=== PATIENT | female | born 1995 | race Caucasian/White ===

== ENCOUNTER → 2017-09-16 | Outpatient (CLI) | payer BC | END | disposition home or self-care (01) | LOC: LABWHC1 13:43 | PROVIDERS: ATTEND Obstetrics & Gynecology | DX: Z36.9 Encounter for antenatal screening, unspecified (principal) | CPT/HCPCS: 36415; 82950; 86850 ==

== ENCOUNTER 2017-11-02 06:27 | Inpatient (IN) | payer BC ==
[2017-11-02] MEDS ORDERED: LACTATED RINGERS 1,000 ML IV SCH (07:00)
[2017-11-02 07:07] LABS: Basophils % (A) 0 %; Eosinophils # (A) 0.1 k/uL (0-0.7); Eosinophils % (A) 1 %; HCT 35.7 % (34.0-46.0); HGB 11.8 gm/dL (11.4-16.0); Lymphocytes # (A) 1.7 k/uL (1.0-4.8); Lymphocytes % (A) 22 %; MCH 29.3 pg (25.0-35.0); MCHC 33.1 g/dL (31.0-37.0); MCV 88.8 fL (80.0-100.0); Mean Platelet Volume 7.9; Monocytes # (A) 0.4 k/uL (0-1.0); Monocytes % (A) 5 %; Neutrophils # (A) 5.4 k/uL (1.3-7.7); Neutrophils % (A) 70 %; Platelet Count 229 k/uL (150-450); RBC 4.03 m/uL (3.80-5.40); RDW 13.2 % (11.5-15.5); WBC 7.8 k/uL (3.8-10.6)
[2017-11-02] MEDS ORDERED: BETAMET ACET-BETAMETH SOD PHOS 6 MG/ML VIAL IM SCH (07:30)
[2017-11-02 07:42] VITALS: BMI 32.5
[2017-11-02] MEDS: PRENATAL VIT-IRON-FOLIC ACID 1 EACH CAP PO SCH (09:58)
--- NOTE | 2017-11-02 11:50 | P.HPOB ---
History of Present Illness H&P Date: 11/02/17 Chief Complaint: IUP @ 34 5/7 weeks, complete previa, VB This is a pleasant 22yo at 34 5/7 weeks EDC 6/ She has been receiving care with Dr. Bacon. she noted an epidsode of VB this am upon waking, and she presented to labor and delivery on arrival scant bleeding noted on her pad. she denies ctx, good fm. On blood work she had a blood type of O-, rubella immune, RPR nonreactive, hepatitis B surface antigen negative, HIV negative normal ultrasound at 20 weeks was noted she Was administered on 425 ultrasound was repeated on 09/15/2017 secondary to complete previa which remained. She did receive program on 09/23 Review of Systems Constitutional: Denies chills, Denies fatigue, Denies fever Cardiovascular: Reports edema Respiratory: Denies dyspnea Gastrointestinal: Denies constipation, Denies diarrhea Genitourinary: Reports (complete previa with VB) Past Medical History Past Medical History: No Reported History History of Any Multi-Drug Resistant Organisms: None Reported Past Surgical History: Tonsillectomy Past Anesthesia/Blood Transfusion Reactions: No Reported Reaction Past Psychological History: No Psychological Hx Reported Smoking Status: Never smoker Past Alcohol Use History: None Reported Past Drug Use History: None Reported - Past Family History Mother Family Medical History: No Reported History Medications and Allergies Home Medications Medication Instructions Recorded Confirmed Type Pnv,Calcium 72/Iron/Folic Acid 1 tab PO DAILY 11/02/17 11/02/17 History [ Plus Tablet] Allergies Allergy/AdvReac Type Severity Reaction Status Date / Time No Known Allergies Allergy Verified 11/02/17 06:34 Exam Osteopathic Statement: *. No significant issues noted on an osteopathic structural exam other than those noted in the History and Physical/Consult. - Vital Signs Vital signs: Vital Signs Temp Pulse Resp BP 11/02/17 06:35 97.6 F 73 16 121/73 Intake and Output 11/01/17 11/02/17 11/02/17 22:59 06:59 14:59 Other: Weight 86.183 kg - OBG Physical Exam Abdomen: gravid Cervix: defer given complete previa Uterus: enlarged Results Result Diagrams: 11/02/17 06:55 Assessment and Plan (1) Complete placenta previa nos or without hemorrhage, third trimester Current Visit: Yes Status: Acute Code(s): O44.03 - COMPLETE PLACENTA PREVIA NOS OR WITHOUT HEMOR, THIRD TRI SNOMED Code(s): 5220282 (2) Vaginal bleeding Current Visit: Yes Status: Acute Code(s): N93.9 - ABNORMAL UTERINE AND VAGINAL BLEEDING, UNSPECIFIED SNOMED Code(s): 370794039 Plan: will admit for observation, pad count and betamethasone. records are reviewed in detail, last ultrasound was done on 09/15 we will order ultrasound for placental location with this admission.
--- NOTE | 2017-11-02 12:51 | US ---
EXAMINATION TYPE: US OB >= 14 wk fetus DATE OF EXAM: 11/02/2017 COMPARISON: None CLINICAL HISTORY: complete previa, EFW MANISHA Placental location. Bleeding TECHNIQUE: Transabdominal (TA) GESTATIONAL AGE / DATING Physician Established: (34 weeks/5 days) EDC: 12/09/2017 Dates by LMP: (34 weeks/5 days) EDC: 12/09/2017 Dates by First Scan: No previous this is first scan at this facility Dates by Current Scan: (34 weeks/4 days) EDC: 12/10/2017 SURVEY IUP: Single PLACENTA: Posterior PREVIA: Complete MANISHA: 17.7 cm Normal CERVICAL LENGTH (transabdominal: norm > 3.0cm): 3.9 cm BIOMETRY PRESENTATION: Vertex LIE: Longitudinal BPD: 8.7 cm 35 weeks / 1 days HC: 31.4 cm 35 weeks / 1 days AC: 30.64 cm 34 weeks / 4 days FL: 6.8 cm 34 weeks / 6 days ESTIMATED WEIGHT IN GRAMS: 2510 grams ESTIMATED WEIGHT IN LBS/OZ: 5 lbs. 9 oz. WEIGHT PERCENTAGE BASED ON ESTABLISHED DATES: 47.2% HC/AC: 1.02 Normal FL/AC: 22.1 Normal HEART RATE: 158 bpm RHYTHM: Normal Live IUP, measurements consistent with dates. Placenta previa noted. Left renal pelvis appears promin ent measuring 0.9 cm IMPRESSION: 1. Single live intrauterine with a sonographic age of 34 weeks and 4 days and estimated gracia e of delivery of 12/10/2017, concordant with menstrual age. Placenta previa is noted compatible with t he patient's history. 2. Prominent left renal pelvis. renal ultrasound is recommended.
[2017-11-02] MEDS ORDERED: PHENYLEPHRINE-0.9% NACL SYG 1 MG/10 ML SYRINGE ONE (13:07)
[2017-11-02] MEDS ORDERED: KETOROLAC 30 MG/ML 1 ML VIAL ONE (13:07)
[2017-11-02] MEDS ORDERED: MORPHINE SULFATE (PF) 0.3 MG/0.3 ML SYR ONE (13:07)
[2017-11-02] MEDS ORDERED: OXYTOCIN 10 UNIT/ML 1 ML VIAL ONE (13:07)
[2017-11-02] MEDS ORDERED: ceFAZolin 1,000 MG VIAL ONE (13:07)
[2017-11-02] MEDS ORDERED: ONDANSETRON 4 MG/2 ML VIAL ONE (13:07)
[2017-11-02] MEDS ORDERED: NALBUPHINE 10 MG/ML AMPUL IV PRN (13:52)
[2017-11-02] MEDS ORDERED: MORPHINE SULFATE 2 MG/ML SYRINGE IVP PRN (13:52)
[2017-11-02] MEDS ORDERED: diphenhydrAMINE 50 MG/ML 1 ML VIAL IVP PRN ×3 (13:52→14:03)
[2017-11-02] MEDS ORDERED: NALOXONE 0.4 MG/ML 1 ML VIAL IV PRN ×2 (13:52→14:03)
[2017-11-02] MEDS ORDERED: ACETAMINOPHEN TAB 325 MG TAB PO PRN (14:03)
[2017-11-02] MEDS ORDERED: diphenhydrAMINE 50 MG CAP PO PRN (14:03)
[2017-11-02] MEDS ORDERED: ONDANSETRON 4 MG/2 ML VIAL IVP PRN (14:03)
[2017-11-02] MEDS ORDERED: METOCLOPRAMIDE 5 MG/ML 2 ML VIAL IVP PRN (14:03)
[2017-11-02] MEDS ORDERED: diphenhydrAMINE 25 MG CAP PO PRN (14:03)
[2017-11-02] MEDS ORDERED: HYDROcodone/APAP 5-325MG 1 EACH TAB PO PRN (14:03)
[2017-11-02] MEDS ORDERED: ZOLPIDEM 5 MG TAB PO PRN (14:03)
--- NOTE | 2017-11-02 14:03 | P.OP ---
Date of Procedure: 11/02/17 Preoperative Diagnosis: Actively bleeding placenta previa at 34-5/7 weeks' Postoperative Diagnosis: Liveborn male infant, nuchal cord 2, normal-appearing uterus tubes and ovaries Procedure(s) Performed: Primary low transverse section Anesthesia: spinal Surgeon: Loretta Bacon Animal Daycare Provider #1: Jennifer Brown Estimated Blood Loss (ml): 500 IV fluids (ml): 800 Urine output (ml): 300 Pathology: other (Pathology) Condition: stable Disposition: PACU Description of Procedure: Patient was admitted earlier this morning with vaginal bleeding at 34-5/7 weeks ' gestation. Her is remarkable for a known complete placenta previa. Initially IV hydration was given, betamethasone received. Patient did well. Her activity was advanced. She went up to use the commode and had approximately 300 mL of bright red blood and clot immediately. The decision was made for section. Patient was brought to the operating suite, spinal analgesia was given, Pimentel placed to direct drainage. The appropriate timeout is performed to assure proper patient and procedural identification. Antibiotics were given. The analgesia was checked and noted to be adequate. The abdomen was prepped and draped in the usual sterile fashion. A low transverse skin incision was made and this was carried down to the subcutaneous tissue to the fascia. Fascia is isolated scored and extended bilaterally with curved Price scissors. Peritoneum is next identified and incised. There is no bowel or bladder involvement. Bladder retractor is placed over the dome of the bladder and at all times the bladder is Well from the operative field to avoid bladder and/or ureteral injury. A low transverse uterine incision is made, artificial amniorrhexis reveals clear fluid. The incision is extended bluntly. The 's head is delivered occiput anterior. There is a nuchal cord 2 that was reduced. The oropharynx, nasopharynx, and external nares were all bulb suctioned. Patient is officially delivered of a liveborn male infant at 1331 hours. Umbilical cord is doubly clamped and ligated, he is handed to waiting nurses for evaluation where scores of 9 and 9 at one and 5 minutes respectively are given. Cord blood is sent to the lab for Rh- status. The placenta is delivered manually, it is inspected and noted to be intact with trivascular cord. It is sent to pathology. Uterus is then externalized and massaged. It is wiped clean with a sterile sponge to avoid any retained products of conception. The edges of the incision are grasped with Stein clamps. The uterus is closed in a two- step fashion, first layer running locking, second layer imbricated, both with 0 Vicryl suture. Excellent reapproximation and hemostasis is noted. Bilateral tubes and ovaries are inspected and noted to be normal. No uterine anomalies are noted. The abdomen is suctioned with suction on guard and the uterus is placed back into the abdominal cavity. Bilateral gutters are inspected and cleaned. Uterine incision is clean and dry. Peritoneum was allowed to close by secondary intention. Fascia is closed in a running stitch of 0 Vicryl with over ligation in the midline. Incision is irrigated, noted to be clean and dry. Subcutaneous tissue is reapproximated using 3-0 Vicryl in a running manner. 4-0 Monocryl suture is used for final subcuticular closure. Steri- Strips and Mastisol are applied to the wound. The wound is dressed properly. The uterus is massaged. There is no bleeding upon completion of procedure. All sponge needle and enhancement counts are correct. Pimentel is noted to be draining clear urine. Patient is brought back to the recovery room in very good condition with stable vital signs including blood pressure 106/42, pulse 84 , 100% O2 saturation. infant is currently doing well in the nursery.
[2017-11-02] MEDS ORDERED: CITRIC ACID-SODIUM CITRATE 15 ML CUP PO ONE (14:04)
[2017-11-02] MEDS: LACTATED RINGERS 1,000 ML IV SCH ×2 (16:11→22:29)
[2017-11-02] MEDS: SENNOSIDES-DOCUSATE SODIUM 1 EACH TAB PO SCH (21:23)
[2017-11-02] MEDS: IBUPROFEN 600 MG TAB PO PRN (21:23)
[2017-11-02] MEDS ORDERED: Rhogam IMMUNE GLOBULIN 1,500 UNIT/1 ML IM ONE (21:27)
[2017-11-03 00:41] VITALS: RESP 18
--- NOTE | 2017-11-03 06:10 | P.PN ---
Progress Note - Text Progress Note Date: 11/03/17 22 yo female status post . Post-op day #1. Patient received intrathecal Duramorph. Patient was seen today, sitting up in bed no complaints, pain VAS score 0/10, no headache, no itching, no nausea and vomiting. Assessment and plan: Doing well in general no complications from anesthesia.
[2017-11-03] MEDS: IBUPROFEN 600 MG TAB PO PRN (07:01)
[2017-11-03] MEDS: LACTATED RINGERS 1,000 ML IV SCH (07:02)
[2017-11-03 07:15] LABS: Basophils % (A) 0 %; Eosinophils % (A) 0 %; HCT 33.8 % (34.0-46.0); Lymphocytes # (A) 1.5 k/uL (1.0-4.8); Lymphocytes % (A) 11 %; MCH 29.2 pg (25.0-35.0); MCHC 32.5 g/dL (31.0-37.0); MCV 89.7 fL (80.0-100.0); Mean Platelet Volume 8.3; Monocytes # (A) 0.9 k/uL (0-1.0); Monocytes % (A) 6 %; Neutrophils # (A) 11.6 k/uL (1.3-7.7); Neutrophils % (A) 82 %; Platelet Count 243 k/uL (150-450); RBC 3.76 m/uL (3.80-5.40); RDW 13.2 % (11.5-15.5); WBC 14.1 k/uL (3.8-10.6)
[2017-11-03] MEDS: SENNOSIDES-DOCUSATE SODIUM 1 EACH TAB PO SCH (08:56)
[2017-11-03 09:35] VITALS: BP 124/64; PULSE 82; TEMP 97.9
--- NOTE | 2017-11-03 10:09 | P.DS ---
Providers Date of admission: 11/02/17 14:20 Expected date of discharge: 11/03/17 Attending physician: Loretta Bacon Primary care physician: Stated None Hospital Course: Nurses Station for 57 this is a 22-year-old female 1 para 0 EDC 2017 at 34-5/7 weeks' gestation. Patient's is remarkable for known complete placenta previa. She presented to the hospital with her first episode of bright red vaginal bleeding. Betamethasone was given, CBC was checked and hemoglobin was 11.8. The bleeding settled down and then ultimately discontinued. Decision was made to continue to monitor the patient. She stood up to use the commode and again had a large amount of bright red vaginal bleeding. Decision was made to proceed with primary low transverse section. Please see dictated history and physical for details. Patient underwent a low-transverse section and gave to a liveborn male infant with scores of 9 and 9 at one and 5 minutes respectively. He weighed 5 lbs. 15 oz. or 2690 g. Estimated blood loss at the time of the procedure was 500 mL's. Please see my dictated operative note for details. The was transferred to a NICU available institution due to his gestational age. This morning the patient is doing well. She is anxious to be discharged so that she can join her son at [facility] in [place]. Incision is clean and dry, intact, Steri-Strips applied. Fundus is firm and in the midline, symmetric, 16-18 weeks size, nontender. Extremities are negative. Chest is clear in all yen. Morning hemoglobin is stable at 11.0. I believe patient is in good discharge condition for home. Patient will follow-up with me in the office in 2 weeks. I have reminded her no intercourse, tampons or douching. I have given her prescription for a double electric breast pump. She will use [id number] ibuprofen products as needed for pain, 200 mg pills, 3 every 6 hours as needed. I've asked her to call me with any fevers shakes or chills, foul smelling or copious lochia, with the passage of large blood clots, with any pain not alleviated by ibuprofen, or indeed with any questions difficulties or concerns. Does options have been briefly discussed, we will review this further in the office. Patient Condition at Discharge: Good Plan - Discharge Summary Discharge Rx Participant: No New Discharge Prescriptions: No Action Pnv,Calcium 72/Iron/Folic Acid [ Plus Tablet] 1 tab PO DAILY Discharge Medication List Pnv,Calcium 72/Iron/Folic Acid [ Plus Tablet] 1 tab PO DAILY 11/02/17 [ History] Follow up Appointment(s)/Referral(s): Loretta Bacon MD [STAFF PHYSICIAN] - 2 Weeks Discharge Disposition: HOME SELF-CARE
[2017-11-03] MEDS: PRENATAL VIT-IRON-FOLIC ACID 1 EACH CAP PO SCH (11:55)
== END 2017-11-03 11:30 | disposition home or self-care (01) | DRG 766 ==
LOC: FBPOP 06:27 → 4FBP 06:44 → OBSVTOIN 14:20
PROVIDERS: ADMIT Obstetrics & Gynecology Obstetrics; ATTEND Obstetrics & Gynecology
PROC: 10D00Z1 Extraction of Products of Conception, Low, Open Approach (ICD-10-PCS; principal; 2017-11-02 13:44)
DX: O44.13 Complete placenta previa with hemorrhage, third trimester (principal); Z37.0 Single live birth; Z3A.34 34 weeks gestation of pregnancy
CPT/HCPCS: 59025; 76805; 85025; 85461; 86850; 86870; 86880; 86900; 86901; 86902; 88307; 99213

== ENCOUNTER → 2020-01-31 | Outpatient (CLI) | payer BC | END | disposition home or self-care (01) | LOC: LABWHC1 14:40 | PROVIDERS: ATTEND Pediatrics Pediatric Infectious Diseases | DX: Z03.818 Encounter for observation for suspected exposure to other biological agents ruled out (principal) | CPT/HCPCS: U0003; C9803 ==

== ENCOUNTER → 2020-03-08 | Outpatient (CLI) | payer BC | END | disposition home or self-care (01) | LOC: LABWHC1 07:17 | PROVIDERS: ATTEND Obstetrics & Gynecology Obstetrics | DX: Z36.9 Encounter for antenatal screening, unspecified (principal) | CPT/HCPCS: 36415; 82950; 86850 ==

== ENCOUNTER 2020-06-16 03:41 | Inpatient (IN) | payer BC ==
[2020-06-16] MEDS ORDERED: AMPICILLIN 2,000 MG in SODIUM CHLORIDE 0.9% 100 ML IVPB STA (03:52)
[2020-06-16] MEDS ORDERED: TERBUTALINE 1 MG/ML VIAL SQ PRN (03:52)
[2020-06-16] MEDS ORDERED: OXYTOCIN 10 UNIT/ML 1 ML VIAL IM PRN (03:52)
[2020-06-16] MEDS ORDERED: METHYLERGONOVINE 0.2 MG/ML 1 ML AMP IM PRN (03:52)
[2020-06-16] MEDS ORDERED: LIDOCAINE 0.5% (PF) 5 MG/ML (50 ML SDV) SQ PRN (03:52)
[2020-06-16] MEDS ORDERED: CARBOPROST TROMETHAMINE 250 MCG/ML 1 ML AMP IM PRN (03:52)
[2020-06-16] MEDS ORDERED: LACTATED RINGERS 1,000 ML IV SCH (04:00)
[2020-06-16 04:19] LABS: Basophils % (A) 0 %; Eosinophils # (A) 0.1 k/uL (0-0.7); Eosinophils % (A) 1 %; HCT 38.4 % (34.0-46.0); HGB 13.2 gm/dL (11.4-16.0); Lymphocytes # (A) 1.2 k/uL (1.0-4.8); Lymphocytes % (A) 12 %; MCH 29.9 pg (25.0-35.0); MCHC 34.4 g/dL (31.0-37.0); MCV 86.8 fL (80.0-100.0); Mean Platelet Volume 8.6; Monocytes # (A) 0.4 k/uL (0-1.0); Monocytes % (A) 4 %; Neutrophils % (A) 82 %; Platelet Count 192 k/uL (150-450); RBC 4.43 m/uL (3.80-5.40); RDW 14.4 % (11.5-15.5); WBC 9.7 k/uL (3.8-10.6)
[2020-06-16] MEDS ORDERED: ZOLPIDEM 5 MG TAB PO PRN (05:23)
[2020-06-16] MEDS ORDERED: diphenhydrAMINE 25 MG CAP PO PRN (05:23)
[2020-06-16] MEDS ORDERED: SIMETHICONE 80 MG CHEWABLE PO PRN (05:23)
[2020-06-16] MEDS ORDERED: ACETAMINOPHEN TAB 325 MG TAB PO PRN (05:23)
[2020-06-16] MEDS ORDERED: HYDROCORTISONE 2.5% RECTAL CREAM 30 GM TUBE RECTAL PRN (05:23)
[2020-06-16] MEDS ORDERED: LANOLIN CREAM 5 GM TUBE TOPICAL PRN (05:23)
[2020-06-16] MEDS ORDERED: diphenhydrAMINE 50 MG CAP PO PRN (05:23)
[2020-06-16] MEDS ORDERED: diphenhydrAMINE 50 MG/ML 1 ML VIAL IVP PRN ×2 (05:23)
[2020-06-16] MEDS ORDERED: HYDROcodone/APAP 5-325MG 1 EACH TAB PO PRN (05:23)
[2020-06-16] MEDS ORDERED: BENZOCAINE/MENTHOL SPRAY 1 GM/SPRAY AEROSOL TOPICAL PRN (05:23)
--- NOTE | 2020-06-16 05:28 | P.HPOB ---
History of Present Illness H&P Date: 06/16/20 Chief Complaint: IUP at 39 and 3/sevenths weeks, active labor, history of C- section 1 This is a 24-year-old that presented to labor and delivery at 39-3/7 weeks with complaints of regular painful contractions. Patient states contractions woke her at midnight and progressively got stronger. Patient presented to labor and delivery and was noted to be 7 cm. Patient denied loss of fluid or vaginal bleeding. Patient has been receiving routine care with myself which has been essentially uncomplicated. Patient's last was noted to be compensated by a complete previa for which she was delivered at 34 weeks secondary to bleeding. This was a delivery. Patient desired trial of labor after . On bloodwork this patient has a blood type of O-, rubella status immune, hepatitis B surface antigen negative, HIV negative, RPR nonreactive, group beta strep is noted to be positive. Review of Systems Constitutional: Denies chills, Denies fatigue, Denies fever Ears, nose, mouth and throat: Denies headache Cardiovascular: Reports leg edema Respiratory: Denies dyspnea Gastrointestinal: Denies nausea, Denies vomiting Genitourinary: Reports Past Medical History Past Medical History: No Reported History History of Any Multi-Drug Resistant Organisms: None Reported Past Surgical History: Adenoidectomy, Section, Tonsillectomy Additional Past Surgical History / Comment(s): Fence tooth extraction Past Anesthesia/Blood Transfusion Reactions: No Reported Reaction Past Psychological History: No Psychological Hx Reported Smoking Status: Never smoker Past Alcohol Use History: None Reported Past Drug Use History: None Reported - Past Family History Mother Family Medical History: No Reported History Father Family Medical History: Hypertension Medications and Allergies Home Medications Medication Instructions Recorded Confirmed Type Pnv,Calcium 72/Iron/Folic Acid 1 tab PO DAILY 11/02/06/16/20 History [ Plus Tablet] Allergies Allergy/AdvReac Type Severity Reaction Status Date / Time No Known Allergies Allergy Verified 06/16/20 03:49 Exam Osteopathic Statement: *. No significant issues noted on an osteopathic structural exam other than those noted in the History and Physical/Consult. 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 heart tones were noted to be category 1 and she is cleo every 3 minutes. Results Result Diagrams: 06/16/20 04:10 Abnormal Lab Results - Last 24 Hours (Table) 06/16/20 Range/Units 04:10 Neutrophils # 8.0 H (1.3-7.7) k/uL Assessment and Plan (1) Term Current Visit: Yes Status: Acute Code(s): Z34.90 - ENCNTR FOR SUPRVSN OF NORMAL , UNSP, UNSP TRIMESTER SNOMED Code(s): 35934495 (2) GBS (group B Streptococcus carrier), +RV culture, currently Current Visit: Yes Status: Acute Code(s): O99.820 - STREPTOCOCCUS B CARRIER STATE COMPLICATING SNOMED Code(s): 5030264702741 (3) Active labor Current Visit: Yes Status: Acute Code(s): HKF4189 - SNOMED Code(s): 864073797 (4) H/O section Current Visit: Yes Status: Acute Code(s): Z98.891 - HISTORY OF UTERINE SCAR FROM PREVIOUS SURGERY SNOMED Code(s): 754902164 Plan: Patient is admitted to labor and delivery IV antibiotics were begun upon admission and one dose is currently in. Anticipate spontaneous vaginal delivery
--- NOTE | 2020-06-16 05:30 | P.PROBDLV ---
Vaginal Delivery Note - . Vaginal Delivery Note: This is a 24-year-old at 39-3/7 weeks that presented to labor and delivery with complaints of regular painful contractions that began around midnight. Patient was noted to be 7-8 cm upon admission. Patient was admitted to labor and delivery and IV antibiotics were begun secondary to group beta strep positive rectovaginal culture. Patient progressed quickly to complete and began pushing. Patient was pushing well, decelerations were noted with a contraction down to the 60s. With excellent maternal effort patient had a spontaneous vaginal delivery of a viable female infant at 440, weight of 7 lbs. 11 oz. with Apgars of 8 and 9 at one and 5 minutes respectively. Infant did have a loose nuchal cord which was delivered through. After two-minute delayed the umbo cord was doubly clamped and cut. The infant was handed off to maternal abdomen. Cord blood was then taken. The placenta was then delivered spontaneously intact with a three-vessel cord being noted. A second-degree midline laceration was noted this was repaired in the usual fashion with 3-0 repeat. On inspection the patient's vaginal vault and additional vaginal sidewall laceration was noted and repaired in the usual fashion with 3-0 Rapide. Hemostasis was appreciated after closures were complete. Uterus was noted to be firm and below the umbilicus. Lochia was noted be minimal. All counts were noted be correct 2 at the end of the closure. Rectal exam was performed and found to be normal in nature. Patient and tolerated delivery well and are resting comfortably.
[2020-06-16] MEDS ORDERED: OXYTOCIN 30 UNITS/500 ML NS 30 UNIT in SALINE 1 500ML.BAG IV SCH (05:45)
[2020-06-16] MEDS: IBUPROFEN 600 MG TAB PO PRN ×3 (05:52→23:08)
[2020-06-16] MEDS ORDERED: AMPICILLIN 1,000 MG in SODIUM CHLORIDE 0.9% 50 ML IVPB SCH (07:53)
[2020-06-16] MEDS: PRENATAL VIT-IRON-FOLIC ACID 1 EACH CAP PO SCH (16:42)
[2020-06-16] MEDS: SENNOSIDES-DOCUSATE SODIUM 1 EACH TAB PO SCH ×2 (16:42→19:36)
[2020-06-16 23:40] VITALS: RESP 16
[2020-06-17] MEDS: SENNOSIDES-DOCUSATE SODIUM 1 EACH TAB PO SCH (08:39)
[2020-06-17] MEDS: IBUPROFEN 600 MG TAB PO PRN (08:40)
[2020-06-17] MEDS: PRENATAL VIT-IRON-FOLIC ACID 1 EACH CAP PO SCH (08:40)
[2020-06-17 09:20] VITALS: BP 111/71; PULSE 59; TEMP 98.1
--- NOTE | 2020-06-17 11:08 | P.DS ---
Providers Date of admission: 06/16/20 03:43 Expected date of discharge: 06/17/20 Attending physician: Jennifer Brown Primary care physician: Stated None - Discharge Diagnosis(es) (1) Active labor Current Visit: Yes Status: Acute (2) GBS (group B Streptococcus carrier), +RV culture, currently Current Visit: Yes Status: Acute (3) H/O section Current Visit: Yes Status: Acute (4) Term Current Visit: Yes Status: Acute (5) Vaginal delivery following previous caesarean section Current Visit: Yes Status: Acute (6) Perineal laceration with delivery, second degree Current Visit: Yes Status: Acute (7) Nuchal cord Current Visit: Yes Status: Acute Hospital Course: This is a 24-year-old 2 now para 2 woman who presented at 39-3/7 weeks gestation in spontaneous active labor. She was 7+ centimeters dilated on admission. She is known group B strep positive and prophylactic antibiotics were initiated. She went on to have a rapid delivery of a liveborn female infant weighing 7 lbs. 11 oz. with Apgars of 8 at 1 minute and 9 at 5 minutes. She had a secondary perineal lacerations and a nuchal cord 1. Please see the delivery summary for details. The patient's course was unremarkable. By day #1 she was ambulating and voiding without difficulty and her lochia was decreasing. She was breast-feeding successfully. Her pain was well controlled and her vital signs were stable. She was therefore discharged home on day #1 pending discharge of the infant. Procedures: Vaginal after section Patient Condition at Discharge: Good Plan - Discharge Summary New Discharge Prescriptions: No Action Pnv,Calcium 72/Iron/Folic Acid [ Plus Tablet] 1 tab PO DAILY Discharge Medication List Pnv,Calcium 72/Iron/Folic Acid [ Plus Tablet] 1 tab PO DAILY 11/02/17 [History] Follow up Appointment(s)/Referral(s): Jennifer Brown DO [Doctor of Osteopathic Medicine] - 4 Weeks Activity/Diet/Wound Care/Special Instructions: Follow-up in the office in 6 weeks . Call with any concerning signs or symptoms including heavy vaginal bleeding, severe abdominal pain, fever greater than 101, swelling or redness of the lower extremities, foul vaginal discharge, or signs of depression. Nothing in the vagina for 6 weeks after delivery, specifically no intercourse. Discharge Disposition: HOME SELF-CARE
== END 2020-06-17 11:45 | disposition home or self-care (01) | DRG 807 ==
LOC: FBPOP 03:41 → 4FBP 03:43
PROVIDERS: ADMIT Obstetrics & Gynecology; ATTEND Obstetrics & Gynecology Obstetrics
PROC: 10E0XZZ Delivery of Products of Conception, External Approach (ICD-10-PCS; principal; 2020-06-16)
PROC: 0KQM0ZZ Repair Perineum Muscle, Open Approach (ICD-10-PCS; principal; 2020-06-16)
DX: O34.219 Maternal care for unspecified type scar from previous cesarean delivery (principal); Z37.0 Single live birth; O70.1 Second degree perineal laceration during delivery; O69.81X0 Labor and delivery complicated by cord around neck, without compression, not applicable or unspecified; O76 Abnormality in fetal heart rate and rhythm complicating labor and delivery; O99.824 Streptococcus B carrier state complicating childbirth; Z3A.39 39 weeks gestation of pregnancy; Z82.49 Family history of ischemic heart disease and other diseases of the circulatory system
CPT/HCPCS: 85025; 86850; 86900; 86901; 88307

== ENCOUNTER → 2020-12-12 | Outpatient (CLI) | payer BC ==
--- NOTE | 2020-12-12 22:14 | MR ---
EXAMINATION TYPE: MR angio head wo con DATE OF EXAM: 12/12/2020 COMPARISON: None HISTORY: Sudden left sided facial numbness, demyelinating disease of central nervous system, unspecif ied. CONTRAST: None TECHNIQUE: Multiplanar multiecho imaging on a 3.0 Irish magnet is performed through the cocop[place] of [place]. 3-D [id number] imaging is performed. Source images are reviewed on the computer in the axi al plane. Reconstructed images rotating on the computer are reviewed. FINDINGS: The internal carotid arteries bifurcate normally into A1 and M1 segments. The A2 segments are normal. Middle cerebral artery branches are normal. Anterior communicating artery is patent. The right posterior communicating artery is patent. The left posterior communicating artery is patent. Vertebrobasilar arteries within the [id number] are normal. Posterior cerebral vasculature is norm al. No suspicious aneurysm or aneurysmal dilatation is evident. No obstructions are identified. No significant flow-limiting stenosis is evident. IMPRESSIONS: 1. NORMAL MRA RUBY OF [place].
--- NOTE | 2020-12-12 22:29 | MR ---
EXAMINATION TYPE: MR brain wo/w con DATE OF EXAM: 12/12/2020 COMPARISON: None HISTORY: Sudden left sided facial numbness, demyelinating disease of central nervous system, unspecif ied. CONTRAST: Performed utilizing 8.5 mL intravenous Gadavist gadolinium contrast. TECHNIQUE: Multiplanar, multiecho imaging on a 3.0 Irish magnet is performed through the brain. Stud y is performed within 24 hours of arrival to the hospital. The craniovertebral junction is normal. The pituitary is normal. Diffusion-weighted imaging is performed. No abnormal hyperintensity is present to suggest an acute i ntracranial infarct or acute ischemic change. Signal through the brain is normal. No suspicious white matter changes are evident. No suspicious are as of enhancement are evident. Ventricles and sulci are appropriate for the patient age. Vascular structures visualized enhance normally. There are normal vascular flow voids on T2 sequences IMPRESSIONS: 1. Normal pre and postcontrast MRI brain.
== END | disposition home or self-care (01) ==
LOC: RADMRIMAIN 21:07
PROVIDERS: ATTEND Psychiatry & Neurology Neurology
DX: R20.0 Anesthesia of skin (principal); G37.9 Demyelinating disease of central nervous system, unspecified
CPT/HCPCS: 70544; 70553; A9585

== ENCOUNTER → 2020-12-14 | Outpatient (CLI) | payer BC ==
[2020-12-14 14:07] LABS: Cardiolipin Ab IgG Interp NEGATIVE (NEGATIVE); Cardiolipin Ab IgM Interp NEGATIVE (NEGATIVE); Cardiolipin IgA Antibody <2.0 U/mL; Cardiolipin IgM Antibody <1.5 U/mL
[2020-12-14 14:55] LABS: Chol/HDL Ratio 3.35; LDL Cholesterol,Calculated 95.4 mg/dL (0.0-131.0); VLDL Calculation 12.6 mg/dL (5.00-40.00)
== END | disposition home or self-care (01) ==
LOC: LABWHC1 07:33
PROVIDERS: ATTEND Psychiatry & Neurology Neurology
DX: G37.9 Demyelinating disease of central nervous system, unspecified (principal)
CPT/HCPCS: 36415; 80061; 82607; 85652; 86038; 86147; 86431; 86780

== ENCOUNTER 2023-01-05 02:49 | Inpatient (IN) | payer BC ==
[2023-01-05] MEDS ORDERED: AMPICILLIN 2,000 MG in SODIUM CHLORIDE 0.9% 100 ML IVPB ONE (03:00)
[2023-01-05] MEDS ORDERED: miSOPROStoL 200 MCG TAB PO PRN (03:01)
[2023-01-05] MEDS ORDERED: OXYTOCIN 10 UNIT/ML 1 ML VIAL IM PRN (03:01)
[2023-01-05] MEDS ORDERED: TRANEXAMIC 1,000 MG/100ML-NACL 1,000 MG in EMPTY BAG 1 BAG IV PRN (03:01)
[2023-01-05] MEDS ORDERED: CARBOPROST TROMETHAMINE 250 MCG/ML 1 ML AMP IM PRN (03:01)
[2023-01-05] MEDS ORDERED: TERBUTALINE 1 MG/ML VIAL SQ PRN (03:01)
[2023-01-05] MEDS ORDERED: LIDOCAINE 0.5% (PF) 5 MG/ML (50 ML SDV) SQ PRN (03:01)
[2023-01-05] MEDS ORDERED: METHYLERGONOVINE 0.2 MG/ML 1 ML AMP IM PRN (03:01)
[2023-01-05] MEDS ORDERED: OXYTOCIN 30 UNITS/500 ML NS 30 UNIT in SALINE 1 500ML.BAG IV SCH (03:15)
[2023-01-05] MEDS ORDERED: LACTATED RINGERS 1,000 ML IV SCH (03:15)
[2023-01-05 03:27] LABS: Basophils % (A) 0 %; Eosinophils # (A) 0.1 k/uL (0-0.7); Eosinophils % (A) 2 %; HCT 38.1 % (34.0-46.0); HGB 13.3 gm/dL (11.4-16.0); Lymphocytes # (A) 1.8 k/uL (1.0-4.8); Lymphocytes % (A) 20 %; MCH 31.9 pg (25.0-35.0); MCHC 34.9 g/dL (31.0-37.0); MCV 91.5 fL (80.0-100.0); Mean Platelet Volume 9.4; Monocytes # (A) 0.5 k/uL (0-1.0); Monocytes % (A) 5 %; Neutrophils # (A) 6.8 k/uL (1.3-7.7); Neutrophils % (A) 72 %; Platelet Count 166 k/uL (150-450); RBC 4.17 m/uL (3.80-5.40); RDW 13.8 % (11.5-15.5); WBC 9.4 k/uL (3.8-10.6)
[2023-01-05] MEDS ORDERED: HYDROCORTISONE 2.5% RECTAL CREAM 30 GM TUBE RECTAL PRN (04:50)
[2023-01-05] MEDS ORDERED: diphenhydrAMINE 50 MG/ML 1 ML VIAL IVP PRN ×2 (04:50)
[2023-01-05] MEDS ORDERED: LANOLIN CREAM 5 GM TUBE TOPICAL PRN (04:50)
[2023-01-05] MEDS ORDERED: BENZOCAINE/MENTHOL SPRAY 1 GM/SPRAY AEROSOL TOPICAL PRN (04:50)
[2023-01-05] MEDS ORDERED: diphenhydrAMINE 50 MG CAP PO PRN (04:50)
[2023-01-05] MEDS ORDERED: ZOLPIDEM 5 MG TAB PO PRN (04:50)
[2023-01-05] MEDS ORDERED: diphenhydrAMINE 25 MG CAP PO PRN (04:50)
[2023-01-05] MEDS ORDERED: SIMETHICONE 80 MG CHEWABLE PO PRN (04:50)
[2023-01-05] MEDS: IBUPROFEN 600 MG TAB PO SCH ×4 (05:04→23:49)
[2023-01-05] MEDS ORDERED: AMPICILLIN 1,000 MG in SODIUM CHLORIDE 0.9% 50 ML IVPB SCH (07:15)
[2023-01-05] MEDS: SENNOSIDES-DOCUSATE SODIUM 1 EACH TAB PO SCH ×2 (08:14→20:16)
--- NOTE | 2023-01-05 17:06 | P.PROBDLV ---
Vaginal Delivery Note - . Vaginal Delivery Note: Findings viable female delivered at 429, weight of 7 lbs. 1 oz. 27-year-old at 39-5/7 weeks presents in active labor, patient was noted to be completely dilated and upon my arrival. Patient was placed in the modified lithotomy position and with excellent maternal effort brought the infant down to presentation. With additional pushing the head followed by the anterior/posterior shoulder were delivered followed by the body. Spontaneous cry was noted at delivery. After two-minute delayed the umbilical cord was doubly clamped and cut. Cord blood was then taken. The placenta was delivered spontaneously intact with three-vessel cord being noted. On inspection of the patient's vaginal vault a second-degree midline laceration was appreciated. The laceration was injected with lidocaine and repaired in the usual fashion with 3-0 Rapide. After repair hemostasis was appreciated. Uterus is noted to be firm and below the umbilicus after repair. Estimated blood loss 100 mL. Patient and infant tolerated delivery well and are resting comfortably. All counts were correct 2 at the delivery.
--- NOTE | 2023-01-05 17:06 | P.HPOB ---
History of Present Illness H&P Date: 01/05/23 Chief Complaint: IUP at 39 and 5, active labor This is a 27-year-old at 39-5/7 weeks that presents to labor and delivery with complaints of regular painful contractions. Patient states contractions started around 12:30 this morning. Patient noted the contractions to be consistent therefore presented to the hospital. Patient had spontaneous rupture of membranes at 343 after being admitted. Patient had been receiving routine care with myself which is been essentially uncomplicated. Patient has a known blood type of O-. Rubella status immune, hepatitis B surface antigen negative, HIV negative, RPR nonreactive, group beta strep culture positive. Patient notes good movement denies vaginal bleeding or loss of fluid Past Medical History Past Medical History: No Reported History History of Any Multi-Drug Resistant Organisms: None Reported Past Surgical History: Adenoidectomy, Section, Tonsillectomy Additional Past Surgical History / Comment(s): [place] tooth extraction Past Anesthesia/Blood Transfusion Reactions: No Reported Reaction Past Psychological History: No Psychological Hx Reported Smoking Status: Never smoker Past Alcohol Use History: None Reported Past Drug Use History: None Reported - Past Family History Mother Family Medical History: No Reported History Father Family Medical History: Hypertension Medications and Allergies Home Medications Medication Instructions Recorded Confirmed Type Pnv,Calcium 72/Iron/Folic Acid 1 tab PO DAILY 11/02/17 01/05/23 History [ Plus Tablet] Allergies Allergy/AdvReac Type Severity Reaction Status Date / Time No Known Allergies Allergy Verified 06/16/20 03:49 Exam Osteopathic Statement: *. No significant issues noted on an osteopathic structural exam other than those noted in the History and Physical/Consult. 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 Results Result Diagrams: 01/05/23 03:15 Assessment and Plan (1) H/O section Current Visit: No Status: Acute Code(s): Z98.891 - HISTORY OF UTERINE SCAR FROM PREVIOUS SURGERY SNOMED Code(s): 795974617 (2) Term Current Visit: No Status: Acute Code(s): Z34.90 - ENCNTR FOR SUPRVSN OF NORMAL , UNSP, UNSP TRIMESTER SNOMED Code(s): 16578315 (3) Vaginal delivery following previous caesarean section Current Visit: No Status: Acute Code(s): O34.219 - MATERNAL CARE FOR UNSP TYPE SCAR FROM PREVIOUS DEL SNOMED Code(s): 529486227 (4) Active labor Current Visit: No Status: Acute Code(s): VXT2864 - SNOMED Code(s): 828975727 (5) Positive GBS test Current Visit: Yes Status: Acute Code(s): B95.1 - STREPTOCOCCUS, GROUP B, CAUSING [facility]EASES [facility] SNOM[facility] Code(s): 343278472 Plan: 27-year-old at 39-5/7 weeks presents in active labor. Patient is noted to be completely dilated anticipate spontaneous vaginal delivery.
[2023-01-05] MEDS: ACETAMINOPHEN TAB 325 MG TAB PO PRN (20:16)
[2023-01-06] MEDS: IBUPROFEN 600 MG TAB PO SCH (05:55)
[2023-01-06] MEDS: SENNOSIDES-DOCUSATE SODIUM 1 EACH TAB PO SCH (08:01)
[2023-01-06] MEDS: ACETAMINOPHEN TAB 325 MG TAB PO PRN (08:09)
[2023-01-06 08:47] VITALS: BP 117/73; PULSE 79; RESP 16; TEMP 98
--- NOTE | 2023-01-06 08:47 | P.DS ---
Providers Date of admission: 01/05/23 02:49 Expected date of discharge: 01/06/23 Attending physician: Jennifer Brown Primary care physician: Stated None - Discharge Diagnosis(es) (1) H/O section Current Visit: No Status: Acute (2) Term Current Visit: No Status: Acute (3) Vaginal delivery following previous caesarean section Current Visit: No Status: Acute (4) Active labor Current Visit: No Status: Acute (5) Positive GBS test Current Visit: Yes Status: Acute Hospital Course: 77-year-old that presented to labor and delivery on 01/05 with complaints of regular painful contractions. Patient had been receiving routine by mouth care with myself which had been essentially uncomplicated. Patient a prior history with her first of a section secondary to complete previa and vaginal bleeding. Patient had a successful vaginal delivery with her second . Patient elects trial of labor with her third as well. Patient was admitted and noted to be 5-6 cm. Patient underwent spontaneous rupture of membranes with clear fluid. Patient made rapid progress for complete began pushing. Patient had normal spontaneous vaginal delivery of a viable female weight of 7 lbs. 1 oz. at 429. Patient did sustain a second-degree vaginal laceration during delivery which was repaired in the usual fashion with 3-0 Rapide. Patient has done well . On this day #1 she is ambulatory and voiding without difficulty. She is tolerating a regular diet without nausea or vomiting. She states her pain is well- controlled. She denies concerns. She would like discharge home today if infant is cleared by pediatrics. Patient Condition at Discharge: Good Plan - Discharge Summary New Discharge Prescriptions: No Action Pnv,Calcium 72/Iron/Folic Acid [ Plus Tablet] 1 tab PO DAILY Discharge Medication List Pnv,Calcium 72/Iron/Folic Acid [ Plus Tablet] 1 tab PO DAILY 11/02/17 [History] Follow up Appointment(s)/Referral(s): Jennifer Brown DO [Doctor of Osteopathic Medicine] - 2 Weeks Patient Instructions/Handouts: Vaginal Delivery (DC), Vaginal Delivery (GEN) Activity/Diet/Wound Care/Special Instructions: No tub baths or intercourse until 6 weeks . Zaiy-ucw-clstlds ibuprofen 6 her milligrams as needed for pain. Patient is to call the office make a routine visit at 4 weeks. Discharge Disposition: HOME SELF-CARE
== END 2023-01-06 11:00 | disposition home or self-care (01) | DRG 807 ==
LOC: 4FBP 02:49
PROVIDERS: ADMIT Obstetrics & Gynecology Obstetrics; ATTEND Obstetrics & Gynecology Obstetrics
PROC: 10E0XZZ Delivery of Products of Conception, External Approach (ICD-10-PCS; principal; 2023-01-05)
PROC: 0KQM0ZZ Repair Perineum Muscle, Open Approach (ICD-10-PCS; 2023-01-05)
DX: O34.211 Maternal care for low transverse scar from previous cesarean delivery (principal); Z37.0 Single live birth; O70.1 Second degree perineal laceration during delivery; O99.824 Streptococcus B carrier state complicating childbirth; Z3A.39 39 weeks gestation of pregnancy; Z82.49 Family history of ischemic heart disease and other diseases of the circulatory system
CPT/HCPCS: 85025; 86850; 86900; 86901